=== PATIENT | female | born 1950 | race Caucasian/White ===

== ENCOUNTER → 2017-01-05 | Outpatient (CLI) | payer OTHER ==
[~2017-01-05] MED LIST: DOCU1CAP60 PO; LSN/20125 PO; MULT-506 PO; RANI75TA7 PO; URSO300C4 PO
== END | disposition home or self-care (01) ==
LOC: C.RDSM 14:05
PROVIDERS: ATTEND Physical Medicine & Rehabilitation Sports Medicine
DX: M16.0 Bilateral primary osteoarthritis of hip (principal); Z96.643 Presence of artificial hip joint, bilateral

== ENCOUNTER → 2018-01-04 | Outpatient (CLI) | payer OTHER | END | disposition home or self-care (01) | LOC: C.RDSM 13:30 | PROVIDERS: ATTEND Physical Medicine & Rehabilitation Sports Medicine | DX: M16.0 Bilateral primary osteoarthritis of hip (principal); Z96.643 Presence of artificial hip joint, bilateral ==

== ENCOUNTER → 2018-07-02 | Outpatient (CLI) | payer OTHER ==
[~2018-07-02] MED LIST changes: +LISI20TA8 PO; -LSN/20125 PO
--- NOTE | 2018-07-02 09:00 | DIAGNOSTIC IMAGING REPORT ---
L KNEE 4 OR MORE CLINICAL HISTORY: LEFT KNEE PAIN COMPARISON: None. DISCUSSION: Moderate degenerative change all major joint compartments. This includes a patellofemoral joint. No significant joint effusion. No acute bony abnormality. There is no evidence for soft tissue swelling. IMPRESSION: Moderate degenerative change all major joint compartments. No acute process. The above report was generated using voice recognition software. It may contain grammatical, syntax or spelling errors. Electronically signed by: Christopher Montana M.D. 07/02/2018 8:59 AM Dictated Date/Time: 07/02/2018 8:58 AM
== END | disposition home or self-care (01) ==
LOC: C.RDSM 09:56
PROVIDERS: ATTEND Physician Assistant
DX: M25.562 Pain in left knee (principal)

== ENCOUNTER 2021-06-22 20:05 | Observation (INO) ==
--- NOTE | 2021-06-22 20:31 | Emergency Department Note ---
History of Present Illness General Chief complaint: Syncope Stated complaint: SYNCOPE Time Seen by Provider: 06/22/21 20:17 Source: patient and family History of Present Illness Provider complaint: Near syncope Onset (ago): hour(s) less than 1 Location: head Pain Consistency: + now resolved Quality: + other ([place] clammy and as if she may pass out) Relieved By: + rest Associated symptoms: + chest pain and + nausea/vomiting (Nausea no vomiting); no cough, no fever/chills, no headaches, no shortness of breath or no syncope This is a 70-year-old female presents with a near syncopal episode with chest discomfort. The patient states that she had dinner and went to the bathroom to have a bowel movement. She was straining somewhat to have the bowel movement and then she suddenly became very clammy and weak. She had her daughter help to lay her on the ground. She noticed that her apple watch showed a heart rate of 50 at the time. She also developed some chest pressure in the middle of her chest without shortness of breath. She stated that lasted about a minute and felt better after she took her bra off. She had a little bit of nausea but no vomiting. She denies any recent illness, fever, cough or cold symptoms, palpitations, abdominal pain, diarrhea, black or bloody stools or urinary symptoms. She denies any leg swelling or pain. She has been vaccinated for COVID-19. Home Medications Medication Instructions Recorded Confirmed Type azelastine 137 mcg (0.1 %) nasal 1 spray INTRANASAL BID PRN 06/22/21 06/22/21 History spray aerosol cholecalciferol (vitamin D3) 10 10 mcg PO BID 06/22/21 06/22/21 History mcg (400 unit) tablet (Vitamin D3) etodolac 400 mg tablet 400 mg PO BID PRN 06/22/21 06/22/21 History lisinopril 20 2 tab PO DAILY 06/22/21 06/22/21 History mg-hydrochlorothiazide 12.5 mg tablet metoprolol succinate 25 mg 25 mg PO QPM 06/22/21 06/22/21 History tablet,extended release 24 hr omeprazole 20 mg capsule,delayed 20 mg PO DAILY 06/22/21 06/22/21 History release ursodiol 300 mg capsule 300 mg PO ACHS 06/22/21 06/22/21 History Allergies Allergy/AdvReac Type Severity Reaction Status Date / Time Bactrim Allergy Unknown aching Verified 01/05/14 05:41 joints sulfamethoxazole [Bactrim] Allergy Unknown aching Verified 06/22/21 22:43 joints trimethoprim [Bactrim] Allergy Unknown aching Verified 06/22/21 22:43 joints Past Med/Surg History Medical History Osteoarthritis (01/05/14) Social History Smoking Status: Never smoker Feels Safe at Home: Yes Review of Systems See HPI for pertinent positives & negatives. and A total of 10 systems reviewed and were otherwise negative Physical Exam Vital Signs Vital Signs - 24 hr 06/22/21 20:16 06/22/21 21:16 06/22/21 21:37 Pulse Rate - Lying 80 Pulse Rate - Sitting 90 Pulse Rate - Standing 96 H Pulse Rate 78 79 Pulse Rate [Radial] Pulse Rhythm Regular Respiratory Rate 16 16 Respiratory Depth Blood Pressure - Lying 144/62 H Blood Pressure - Sitting 162/72 H Blood Pressure- Standing 164/74 H Blood Pressure 154/57 H Blood Pressure [Left Arm] Blood Pressure Mean 89 Blood Pressure Mean [Left Arm] Pulse Oximetry 98 96 Oxygen Delivery Method Room Air Room Air Sepsis Recent Fever Within 48 Hours No Sepsis New/Unexplained Change in Mental Status No Sepsis Action Taken by Nursing No Action Required 06/22/21 21:39 Pulse Rate - Lying Pulse Rate - Sitting Pulse Rate - Standing Pulse Rate Pulse Rate [Radial] 86 Pulse Rhythm Respiratory Rate 16 Respiratory Depth Normal Blood Pressure - Lying Blood Pressure - Sitting Blood Pressure- Standing Blood Pressure Blood Pressure [Left Arm] 164/74 H Blood Pressure Mean Blood Pressure Mean [Left Arm] 104 Pulse Oximetry 96 Oxygen Delivery Method Sepsis Recent Fever Within 48 Hours Sepsis New/Unexplained Change in Mental Status Sepsis Action Taken by Nursing Constitutional: Vital signs reviewed. Eyes: Pupils are equal round reactive to light. Conjunctiva are noninjected. ENT: Pharynx is clear without erythema or exudate. Mucous membranes are moist. Neck supple without meningeal signs. Respiratory: Clear to auscultation bilaterally. Breath sounds are equal bilaterally. Cardiovascular: Regular rate and rhythm. No rubs or gallops. GI: Soft, nondistended and nontender. Bowel sounds are present. Musculoskeletal: No peripheral edema. No lower extremity tenderness. Integumentary: No cyanosis. or jaundice. Neurological: The patient is awake and alert. No focal deficits. Psychiatric: Normal affect. Not anxious appearing. Course Administered Medications Magnesium Sulfate/Dextrose (Magnesium Sulfate / D5w) 1 gm in 100 mls @ 100 mls/hr IV Q1H SHEILA Stop: 06/22/21 23:47 Last Admin: 06/22/21 21:58 Dose: 100 mls/hr Documented by: [id number] Discontinued Medications Potassium Chloride (K Sergei / Wtr) 10 meq in 100 mls @ 100 mls/hr IV ONE ONE Stop: 06/22/21 22:47 Last Admin: 06/22/21 21:58 Dose: 100 mls/hr Documented by: [id number] Potassium Chloride (Potassium Chloride 10 Meq Tabcr) 20 meq PO NOW STA Stop: 06/22/21 21:49 Last Admin: 06/22/21 21:58 Dose: 20 meq Documented by: [id number] Medical Decision Making Differential Diagnosis Vagal reaction, dysrhythmia, heart block, unstable angina, metabolic derangement Medical Records I did perform a limited focused review of portions of the patient's old chart on the electronic medical record. The patient has had no recent pertinent visits to this hospital. Home Medications Current Medication List: was personally reviewed by me Laboratory Data Attestation: I reviewed the patient's lab results. Result diagrams: 06/22/21 20:35 06/22/21 20:35 Lab Results 06/22/21 06/22/21 06/22/21 Range/Units 20:35 20:35 20:41 WBC 9.23 (4.8-10.8) K/uL RBC 4.46 (4.2-5.4) M/uL Hgb 13.6 (12.0-16.0) g/dL Hct 38.5 (37-47) % MCV 86.3 (80-100) fL MCH 30.5 (25-34) pg MCHC 35.3 (32-36) g/dL RDW Std Deviation 42.7 (36.4-46.3) fL RDW Coeff of Hussein 13.3 (11.5-14.5) % Plt Count 285 (130-400) K/uL MPV 9.4 (7.4-10.4) fL Immature Gran % (Auto) 0.3 % Neut % (Auto) 76.7 % Lymph % (Auto) 10.7 % [place] % (Auto) 9.4 % Eos % (Auto) 2.7 % Baso % (Auto) 0.2 % Neut # (Auto) 7.07 H (1.4-6.5) K/uL Lymph # (Auto) 0.99 L (1.2-3.4) K/uL [place] # (Auto) 0.87 H (0.11-0.59) K/uL Eos # (Auto) 0.25 (0-0.5) K/uL Baso # (Auto) 0.02 (0-0.2) K/uL Immature Gran # (Auto) 0.03 H (0.00-0.02) K/uL Sodium 128 L (136-145) mmol/L Potassium 3.2 L (3.5-5.1) mmol/L Chloride 93 L (98-107) mmol/L Carbon Dioxide 27 (21-32) mmol/L Anion Gap 7.0 (3-11) BUN 31 H (7-18) mg/dl Creatinine 1.17 (0.6-1.2) mg/dl Est Cr Clr Drug Dosing 53.2 ml/min Est GFR ( Amer) 55.1 ml/min Est GFR (Non-Af Amer) 47.5 ml/min BUN/Creatinine Ratio 26.2 H (10-20) Glucose 157 H (70-99) mg/dl Calcium 8.9 (8.5-10.1) mg/dl Phosphorus 2.9 (2.5-4.9) mg/dl Magnesium 1.2 L (1.8-2.4) mg/dl Total Bilirubin 0.4 (0.2-1) mg/dl AST 22 (15-37) U/L ALT 22 (12-78) U/L Alkaline Phosphatase 89 (45-117) U/L Troponin I < 0.015 (0-0.045) ng/ml Total Protein 7.1 (6.4-8.2) gm/dl Albumin 3.3 L (3.4-5.0) gm/dl Globulin 3.8 (2.5-4.0) gm/dl Albumin/Globulin Ratio 0.9 (0.9-2) COVID-19 Eval Order Covid19 at [facility] SARS-CoV-2 (PCR) (Negative) 06/22/21 Range/Units 20:41 WBC (4.8-10.8) K/uL RBC (4.2-5.4) M/uL Hgb (12.0-16.0) g/dL Hct (37-47) % MCV (80-100) fL MCH (25-34) pg MCHC (32-36) g/dL RDW Std Deviation (36.4-46.3) fL RDW Coeff of Hussein (11.5-14.5) % Plt Count (130-400) K/uL MPV (7.4-10.4) fL Immature Gran % (Auto) % Neut % (Auto) % Lymph % (Auto) % [place] % (Auto) % Eos % (Auto) % Baso % (Auto) % Neut # (Auto) (1.4-6.5) K/uL Lymph # (Auto) (1.2-3.4) K/uL [place] # (Auto) (0.11-0.59) K/uL Eos # (Auto) (0-0.5) K/uL Baso # (Auto) (0-0.2) K/uL Immature Gran # (Auto) (0.00-0.02) K/uL Sodium (136-145) mmol/L Potassium (3.5-5.1) mmol/L Chloride (98-107) mmol/L Carbon Dioxide (21-32) mmol/L Anion Gap (3-11) BUN (7-18) mg/dl Creatinine (0.6-1.2) mg/dl Est Cr Clr Drug Dosing ml/min Est GFR ( Amer) ml/min Est GFR (Non-Af Amer) ml/min BUN/Creatinine Ratio (10-20) Glucose (70-99) mg/dl Calcium (8.5-10.1) mg/dl Phosphorus (2.5-4.9) mg/dl Magnesium (1.8-2.4) mg/dl Total Bilirubin (0.2-1) mg/dl AST (15-37) U/L ALT (12-78) U/L Alkaline Phosphatase (45-117) U/L Troponin I (0-0.045) ng/ml Total Protein (6.4-8.2) gm/dl Albumin (3.4-5.0) gm/dl Globulin (2.5-4.0) gm/dl Albumin/Globulin Ratio (0.9-2) COVID-19 Eval Order SARS-CoV-2 (PCR) NEGATIVE (Negative) Imaging Data Attestation: I personally reviewed and interpreted this imaging study as follows: My Impression: Chest x-ray per my interpretation shows no acute cardiopulmonary process. ECG Data Attestation: I personally reviewed and interpreted this ECG as follows: Indication: + chest pain and + weakness Rate (beats per minute): 75 Rhythm: + normal sinus ECG [place]: + Normal ECG ST segments: + Nonspecific ST abnormalities ECG Findings: no PVCs Comparison ECG Date: no prior available MDM Narrative I did evaluate the patient as noted above. She is presenting with a near syncopal episode while trying to defecate. Her daughter states that her heart r ate on the patient's apple watch was 50. She also had some chest pressure which went away after she took her bra off. IV access was established. I did place an order for continuous cardiac monitoring. The monitor showed normal sinus rhythm at a rate of 76 bpm. I did order and personally review the patient's 12- lead EKG as described above. She has some nonspecific ST changes. There is no ST elevation. There is no old EKG to compare this with. I did order and personally reviewed the images of the patient's chest x-ray as described above. There is no evidence of acute abnormality on chest x-ray. I did order a urine analysis. I did order and review the patient's blood work as noted in the electronic medical record. Electrolytes demonstrate a sodium of 128, potassium of 3.2, chloride of 93 and magnesium of 1.2. I did treat the patient with IV KCl as well as magnesium. She was also given oral potassium. She does state that she has had low sodium in the past. She also states that she has been dieting since March and has lost 15 pounds. I did order a phosphorus as well which is pending. CBC does not demonstrate leukocytosis or anemia. Troponin is negative. LFTs are unremarkable. I did discuss the test results with the patient. I did recommend hospitalization for continued cardiac monitoring as well as repletion of her electrolytes, repeat cardiac biomarkers and further evaluation. I did discuss the case with the hospitalist and medical case manager. Covid screening test is negative. Impression & Plan Bradycardia, Near syncope, Hyponatremia, Acute hypokalemia, Hypomagnesemia, Chest pain Discharge Plan Visit Data Chief Complaint: Syncope Stated Complaint: SYNCOPE ED Provider: Santos Sánchez Discharge Problem: Bradycardia, Near syncope, Hyponatremia, Acute hypokalemia, Hypomagnesemia, Chest pain Patient Disposition: Being Evaluated by Hospitalist Forms Stand Alone Forms: My [facility] Prescriptions Prescriptions: No Action lisinopril-hydrochlorothiazide 20-12.5 mg tablet 2 tab PO DAILY RF: 0 ursodiol 300 mg capsule 300 mg PO ACHS RF: 0 omeprazole 20 mg capsule,delayed release(DR/EC) 20 mg PO DAILY RF: 0 etodolac 400 mg tablet 400 mg PO BID PRN (Reason: Pain) RF: 0 metoprolol succinate 25 mg tablet extended release 24 hr 25 mg PO QPM RF: 0 azelastine 137 mcg (0.1 %) aerosol,spray 1 spray INTRANASAL BID PRN (Reason: allergies) RF: 0 cholecalciferol (vitamin D3) [Vitamin D3] 10 mcg (400 unit) Tablet 10 mcg PO BID RF: 0 Referrals Referrals: PCP,NO [Physician] -
[2021-06-22 20:49] LABS: Basophils # (auto) 0.02 K/uL (0-0.2); Basophils % (auto) 0.2 %; Eosinophils # (auto) 0.25 K/uL (0-0.5); Eosinophils % (auto) 2.7 %; Hematocrit (blood only) 38.5 % (37-47); Hemoglobin 13.6 g/dL (12.0-16.0); Immature Granulocytes # (auto) 0.03 K/uL (0.00-0.02); Immature Granulocytes % (auto) 0.3 %; Lymphocytes # (auto) 0.99 K/uL (1.2-3.4); Lymphocytes % (auto) 10.7 %; Mean Corpuscular Hemoglobin 30.5 pg (25-34); Mean Corpuscular Hgb Conc 35.3 g/dL (32-36); Mean Corpuscular Volume 86.3 fL (80-100); Mean Platelet Volume 9.4 fL (7.4-10.4); Monocytes # (auto) 0.87 K/uL (0.11-0.59); Monocytes % (auto) 9.4 %; Neutrophils # (auto) 7.07 K/uL (1.4-6.5); Neutrophils % (auto) 76.7 %; Platelet Count 285 K/uL (130-400); RDW Coefficient of Variation 13.3 % (11.5-14.5); RDW Standard Deviation 42.7 fL (36.4-46.3); Red Blood Count 4.46 M/uL (4.2-5.4); White Blood Count 9.23 K/uL (4.8-10.8)
[2021-06-22 21:08] LABS: Alanine Aminotransferase 22 U/L (12-78); Albumin Level 3.3 gm/dl (3.4-5.0); Aspartate Aminotransferase 22 U/L (15-37); BUN Creatinine Ratio 26.2 (10-20); Blood Urea Nitrogen 31 mg/dl (7-18); Calcium 8.9 mg/dl (8.5-10.1); Carbon Dioxide 27 mmol/L (21-32); Chloride 93 mmol/L (98-107); Creatinine Clr Calc Pharmacy 53.2 ml/min; Est GFR (African American) 55.1 ml/min; Est GFR (Non-African American) 47.5 ml/min; Glucose 157 mg/dl (70-99); Magnesium 1.2 mg/dl (1.8-2.4); Potassium 3.2 mmol/L (3.5-5.1); Sodium 128 mmol/L (136-145)
[2021-06-22 21:13] LABS: Albumin Globulin Ratio 0.9 (0.9-2); Alkaline Phosphatase 89 U/L (45-117); Bilirubin,Total 0.4 mg/dl (0.2-1); Globulin 3.8 gm/dl (2.5-4.0); Total Protein 7.1 gm/dl (6.4-8.2); Troponin I < 0.015 ng/ml (0-0.045)
[2021-06-22] MEDS ORDERED: POTASSIUM CHLORIDE / WTR 10 MEQ/100 ML PLCT IV ONE (21:48)
[2021-06-22] MEDS ORDERED: POTASSIUM CHLORIDE 10 MEQ TABCR PO STA (21:48)
[2021-06-22] MEDS: MAGNESIUM SULFATE / D5W 1 GM/100 ML BAG IV SCH ×2 (21:58→23:17)
[2021-06-22 22:02] LABS: Phosphorus 2.9 mg/dl (2.5-4.9)
[2021-06-22] MEDS ORDERED: POTASSIUM CHLORIDE CRTAB 20 MEQ TABCR PO STA (22:39)
--- NOTE | 2021-06-22 23:37 | History and Physical Report ---
DATE OF ADMISSION: 06/22/2021. CHIEF COMPLAINT: Presyncope. HISTORY OF PRESENT ILLNESS: A 70-year-old female with past medical history significant for prediabetes, Raynaud's syndrome, hypertension, GERD, obesity, presents with presyncope. The patient says she had a big dinner today, after that she felt like going to bathroom. She sat on the commode and moved her bowels , and she felt like she had to go more, but it was not coming, then she felt clammy and did not feel good, and she laid on the ground and called her daughter and the EMS was called. When the EMS came, they made her walk and she was feeling fine, but she was brought in here because of the presyncope symptoms. In the ER, she was found to have hyponatremia, hypokalemia and hypomagnesemia, and we were called for admission. She is resting comfortably currently and she had again a loose bowel movement to the ER. [place] dizzy before, but the dizziness is improved. No headache, no blurred visions, no earache. She has had runny nose from her allergies. No sore throat, no cough, no fevers, no chest pain currently, no shortness of breath, currently no nausea, no abdominal pain. Normal bladder movements, no blood in stools or black stools. No hematuria, no swelling in the legs, no rash. Otherwise, she ambulates okay. ALLERGIES: BACTRIM. PAST MEDICAL HISTORY: As mentioned above. PAST SURGICAL HISTORY: Cholecystectomy, tonsillectomy, adenoidectomy, total hip replacement. MEDICATIONS: The patient is on azelastine spray b.i.d. p.r.n., vitamin D 10 mcg p.o. b.i.d., etodolac 400 mg p.o. b.i.d. p.r.n., lisinopril/hydrochlorothiazide 20/12.5 mg 2 tablets daily, metoprolol succinate 25 mg p.o. daily, omeprazole 20 mg p.o. daily, ursodiol 300 mg p.o. a.c. at bedtime. FAMILY HISTORY: Significant for father has alcoholism, pancreatic cancer; mother has diabetes, alcoholism. Maternal grandfather has diabetes, paternal grandfather has diabetes, maternal grandmother has stroke. SOCIAL HISTORY: . Former smoker, quit in 1973. Smoked half pack a day for 2 years. Alcohol, 1 drink per week. No drug use. REVIEW OF SYSTEMS: As per HPI. Rest of her review of systems is negative. PHYSICAL EXAMINATION: GENERAL: The patient is obese, not in acute distress. VITAL SIGNS: Afebrile, pulse 86, respiratory rate 16, blood pressure 164/74, oxygen 96% on room air. HEENT: Pupils equal, round and reactive to light. Oral mucosa moist. NECK: No JVD, no neck masses. CARDIOVASCULAR: S1 and S2 heard. Regular rate and rhythm. No murmur, no gallop. RESPIRATORY SYSTEM: Normal AP diameter. No accessory muscle use. No wheezing, no crackles. ABDOMEN: Soft, bowel sounds present, nontender, no distention. CENTRAL NERVOUS SYSTEM: Cranial nerves II-XII grossly intact, nonfocal. EXTREMITIES: No edema, no erythema. LABORATORY DATA: WBC 9.2, hemoglobin 13.6, hematocrit 38.5, platelets 285. Sodium 128, potassium 3.2, chloride 93, bicarbonate 27, BUN 31, creatinine 1.1, serum glucose 157, calcium 8.9, phosphorus 2.9, magnesium 1.2, total bilirubin 0.4, AST 22, ALT 22, alkaline phosphatase 89. Troponin I less than 0.015. SARS-CoV-2 PCR negative. IMAGING: Chest x-ray: No acute findings. EKG: Normal sinus rhythm, rate of 75, no significant change was found. ASSESSMENT AND PLAN: This is a 70-year-old female who presents with presyncope. 1. Presyncope: Could be mostly vasovagal as the patient was straining to move her bowels. Also electrolyte abnormalities, which we will replace. We will place her on gentle fluids. Orthostatics. Monitor in the telemetry and echocardiogram and follow repeat laboratories in the a.m. Physical therapy and occupational therapy prior to discharge. If any concern, we will consult cardiology. 2. Electrolyte abnormalities: Potassium 3.2, magnesium of 1.2; we will replace. Follow the repeat laboratories. The patient has hyponatremia, sodium of 128. We will follow the urine osmolality, serum osmolality and urine sodium. Getting gentle fluids. We will monitor the repeat laboratories. The patient is on hydrochlorothiazide,may need to change to a different blood pressure medication. 3. 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 We will check vitamin B12 in morning laboratories. 4. Hypertension: Continue Toprol-XL and lisinopril. We will hold hydrochlorothiazide for now.Followup with PCP. 5. Deep venous thrombosis prophylaxis: Sequential compression devices. DISPOSITION: Monitor in the med-tele. PT/OT prior to discharge. Social service to help with discharge planning. Job ID: [id number] [facility]ash
[2021-06-23] MEDS ORDERED: ACETAMINOPHEN 325 MG TAB PO PRN (00:27)
[2021-06-23] MEDS ORDERED: NITROGLYCERIN SL 0.4 MG/TAB TAB SL PRN (00:27)
[2021-06-23] MEDS ORDERED: SODIUM CHLORIDE 0.9% 1000ML 1,000 ML IV SCH (00:27)
[2021-06-23 05:27] LABS: Basophils # (auto) 0.01 K/uL (0-0.2); Basophils % (auto) 0.1 %; Eosinophils # (auto) 0.13 K/uL (0-0.5); Eosinophils % (auto) 1.4 %; Hematocrit (blood only) 38.3 % (37-47); Hemoglobin 13.7 g/dL (12.0-16.0); Immature Granulocytes # (auto) 0.03 K/uL (0.00-0.02); Immature Granulocytes % (auto) 0.3 %; Lymphocytes # (auto) 1.06 K/uL (1.2-3.4); Lymphocytes % (auto) 11.7 %; Mean Corpuscular Hemoglobin 30.5 pg (25-34); Mean Corpuscular Hgb Conc 35.8 g/dL (32-36); Mean Corpuscular Volume 85.3 fL (80-100); Mean Platelet Volume 9.3 fL (7.4-10.4); Neutrophils # (auto) 6.85 K/uL (1.4-6.5); Neutrophils % (auto) 75.5 %; Platelet Count 292 K/uL (130-400); RDW Coefficient of Variation 13.3 % (11.5-14.5); RDW Standard Deviation 41.6 fL (36.4-46.3); Red Blood Count 4.49 M/uL (4.2-5.4); White Blood Count 9.08 K/uL (4.8-10.8)
[2021-06-23 06:02] LABS: BUN Creatinine Ratio 29.1 (10-20); Blood Urea Nitrogen 25 mg/dl (7-18); Calcium 8.8 mg/dl (8.5-10.1); Carbon Dioxide 26 mmol/L (21-32); Chloride 94 mmol/L (98-107); Creatinine Clr Calc Pharmacy 71.5 ml/min; Est GFR (African American) 78.8 ml/min; Glucose 120 mg/dl (70-99); Magnesium 2.3 mg/dl (1.8-2.4); Potassium 3.8 mmol/L (3.5-5.1); Sodium 129 mmol/L (136-145)
[2021-06-23 06:04] LABS: Phosphorus 3.4 mg/dl (2.5-4.9); Troponin I < 0.015 ng/ml (0-0.045)
--- NOTE | 2021-06-23 06:40 | Hospitalist Progress Note ---
Date of Service June 23, 2021 Assessment & Plan Admission and Anticipated Discharge Date Admission Date: June 22, 2021 Subjective Small pink area on her bed pad as per nursing staff. Seems patient feels she mi ght have irritation from diarrhea. Will follow hemeoccult stool test. Results & Data Results & Data ([facility]) Vital Signs (Past 12 Hours) Vital Signs Temp Pulse Pulse Resp BP BP Pulse Ox 06/23/21 04:44 37.0 C 82 16 163/64 H 98 06/23/21 04:31 87 06/23/21 03:00 36.6 C 77 18 137/74 94 06/22/21 23:06 83 164/82 H 06/22/21 21:39 86 16 164/74 H 96 06/22/21 21:16 79 16 96 06/22/21 20:16 78 16 154/57 H 98
--- NOTE | 2021-06-23 07:31 | Electrocardiogram Report ---
Test Reason : Blood Pressure : / mmHG Vent. Rate : 075 BPM Atrial Rate : 075 BPM P-R Int : 150 ms QRS Dur : 076 ms QT Int : 376 ms P-R-T Axes : 049 041 045 degrees QTc Int : 419 ms Normal sinus rhythm Possible Left atrial enlargement Abnormal ECG When compared with ECG of 26-DEC-2013 12:34, No significant change was found Confirmed by Jarek Hernandez ([id number]) on 06/23/2021 7:31:18 AM Referred By: REFERRED SELF Confirmed By:Tono Hernandez
--- NOTE | 2021-06-23 07:35 | Electrocardiogram Report ---
Test Reason : Blood Pressure : / mmHG Vent. Rate : 091 BPM Atrial Rate : 091 BPM P-R Int : 144 ms QRS Dur : 076 ms QT Int : 358 ms P-R-T Axes : 051 034 046 degrees QTc Int : 440 ms Normal sinus rhythm Normal ECG When compared with ECG of 22-JUN-2021 20:17, (unconfirmed) No significant change was found Confirmed by Jarek Hernandez ([id number]) on 06/23/2021 7:34:36 AM Referred By: REFERRED SELF Confirmed By:Tono Hernandez
--- NOTE | 2021-06-23 07:48 | XRay Report ---
XR chest 1V portable CLINICAL HISTORY: Chest Pain COMPARISON STUDY: December 26, 2013 FINDINGS: No pneumothorax. No pleural effusion. Small atelectasis or infiltrate is seen at the left base. Cardiomediastinal silhouette is within normal limits in size. No significant pulmonary vascular congestion.. Aorta is tortuous. Osseous structures: Osteopenia. Possible degenerative changes of the spine however vertebral bodies are not well seen. IMPRESSION: 1. Small atelectasis or infiltrate at the left base. ACT 112: Negative or not required by law. The above report was generated using voice recognition software. It may contain grammatical, syntax o r spelling errors. Electronically signed by: Debi Fisher DO 06/23/2021 7:46 AM
[2021-06-23] MEDS: PANTOprazole 40 MG TAB PO SCH (09:07)
[2021-06-23] MEDS: CHOLECALCIFEROL 400 UNITS 10 MCG TAB PO SCH ×2 (09:07→21:45)
[2021-06-23] MEDS: AZELASTINE: ORDER AWAITING ACTION SCH ×2 (09:08→13:22)
[2021-06-23] MEDS: lisinopril 20 MG TAB PO SCH (09:08)
[2021-06-23] MEDS: ursodioL 300 MG CAP PO SCH ×4 (09:08→21:45)
[2021-06-23 13:22] LABS: Appearance Urine Clear (Clear); Bacteria Urine Automated Negative (Negative); Bilirubin Urine Negative (Negative); Blood Urine Trace (Negative); Cast Urine Automated 0 /lpf (0-5); Color Urine Yellow; Glucose Urine UA Negative (Negative); Ketones Urine Negative (Negative); Leukocyte Esterase Urine Negative (Negative); Nitrite Urine Negative (Negative); Protein Urine Negative (Negative); RBC Urine Automated 0-4 /hpf (0-4); Specific Gravity Urine 1.006 (1.000-1.030); Urobilinogen Urine Negative (Negative); pH Urine 5.5 (4.5-7.5)
[2021-06-23] MEDS ORDERED: amLODIPine BESYLATE 5 MG TAB PO ONE (15:26)
[2021-06-23] MEDS ORDERED: METOPROLOL SUCC 25MG EXT REL TAB PO SCH (21:00)
[2021-06-24] MEDS: AZELASTINE: ORDER AWAITING ACTION SCH ×3 (02:32→16:25)
[2021-06-24 08:30] LABS: Hematocrit (blood only) 37.6 % (37-47); Mean Corpuscular Hemoglobin 29.7 pg (25-34); Mean Corpuscular Hgb Conc 34.6 g/dL (32-36); Mean Platelet Volume 9.1 fL (7.4-10.4); Platelet Count 265 K/uL (130-400); RDW Coefficient of Variation 13.4 % (11.5-14.5); RDW Standard Deviation 42.2 fL (36.4-46.3); Red Blood Count 4.37 M/uL (4.2-5.4)
[2021-06-24] MEDS ORDERED: amLODIPine BESYLATE 5 MG TAB PO SCH (09:00)
[2021-06-24 09:10] LABS: BUN Creatinine Ratio 22.5 (10-20); Calcium 8.7 mg/dl (8.5-10.1); Creatinine Clr Calc Pharmacy 98.7 ml/min; Est GFR (African American) 106.1 ml/min; Est GFR (Non-African American) 91.5 ml/min; Magnesium 1.5 mg/dl (1.8-2.4); Phosphorus 2.3 mg/dl (2.5-4.9); Potassium 3.8 mmol/L (3.5-5.1)
[2021-06-24] MEDS: PANTOprazole 40 MG TAB PO SCH (09:48)
[2021-06-24] MEDS: ursodioL 300 MG CAP PO SCH ×3 (09:48→16:24)
[2021-06-24] MEDS: CHOLECALCIFEROL 400 UNITS 10 MCG TAB PO SCH (09:48)
[2021-06-24] MEDS: lisinopril 20 MG TAB PO SCH (09:51)
[2021-06-24] MEDS ORDERED: CYANOCOBALAMIN 500 MCG TABLET (VITAMIN B-12) PO SCH (10:00)
[2021-06-24] MEDS: MAGNESIUM SULFATE / D5W 1 GM/100 ML BAG IV SCH ×2 (10:57→12:43)
[2021-06-24] MEDS: POT PHOSPHATE MONOBASIC W/ SOD TAB PO SCH ×2 (11:56→16:24)
--- NOTE | 2021-06-24 13:57 | Hospitalist Progress Note ---
Date of Service June 23, 2021 Assessment & Plan (1) Near syncope: (2) Acute hypokalemia: (3) Hypomagnesemia: Plan: This is a 70-year-old female who presents with presyncope. 1. Presyncope: Could be mostly vasovagal as the patient was straining to move her bowels. Also electrolyte abnormalities, which we will replace. We will place her on gentle fluids. Orthostatics checked - normal. Patient reports several loose stools since large dinner, still continues to have loose stools about every 2 hrs, says it slowed down. No one else in the family had loose stools after dinner. Patient reports that sometimes she gets loose stools also from being nervous, says she was very excited about the dinner because she did not see her family in a long time due to Covid No abdominal pain, no nausea or vomiting Telemetry reviewed, normal sinus rhythm Echocardiogram -LV normal in size. Mild concentric LVH. EF 65%. LV wall motion is normal. RV systolic function is normal. LA size is normal. RA size is normal. Mild aortic regurg. There is moderate tricuspid regurg. Grade 1 diastolic dysfunction. 2. Electrolyte abnormalities: Potassium 3.2, Magnesium of 1.2; we will replace. Follow the repeat laboratories. The patient has hyponatremia, sodium of 128. Na 129 this AM We will follow the urine osmolality, serum osmolality and urine sodium. Getting gentle fluids. We will monitor the repeat laboratories. The patient is on hydrochlorothiazide,may need to change to a different blood pressure medication. Will hold HCTZ, start on amlodipine 2.5 mg. 3. 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 We will check vitamin B12 in morning laboratories. 4. Hypertension: Continue Toprol-XL and lisinopril. We will hold hydrochlorothiazide for now. Followup with PCP. DVT prophylaxis: SCDs DISPOSITION: Plan discharge home when medically stable. Admission and Anticipated Discharge Date Admission Date: June 22, 2021 Subjective Patient seen in follow-up, of likely vasovagal episode, hypokalemia and hypomagnesemia She is now feeling well, in NAD Her is present at the bedside She says that she has been having some loose stools since large dinner she made for her family, however denies any abdominal pain nausea or vomiting No one else in the family had loose stools after dinner Patient says that sometimes she gets loose stools from also being nervous, and she was excited because family did not meet in a long time due to Covid Currently however denies any dizziness lightheadedness, chest pain shortness of breath, overall says that she feels well Review of Systems Review of Systems: All systems reviewed & are unremarkable except as noted in Subjective Physical Exam Physical Exam: GENERAL: obese, pleasant female, not in acute distress. HEENT: NC/AT, Pupils equal, round and reactive to light. Oral mucosa moist. NECK: No JVD, no neck masses. CARDIOVASCULAR: S1 and S2 heard. Regular rate and rhythm. No murmur, no gallop. RESPIRATORY: Normal AP diameter. No accessory muscle use. No wheezing, no crackles. ABDOMEN: Soft, bowel sounds present, nontender, no distention. NEURO: Alert and oriented x3, no facial asymmetry, speech fluent, moves extremities EXTREMITIES: No edema, no erythema. Results & Data Results & Data ([place]) Vital Signs (Past 12 Hours)
--- NOTE | 2021-06-24 14:06 | Hospitalist Progress Note ---
Date of Service June 24, 2021 Assessment & Plan (1) Near syncope: (2) Acute hypokalemia: (3) Hypomagnesemia: Plan: This is a 70-year-old female who presents with presyncope. 1. Presyncope: Could be mostly vasovagal as the patient was straining to move her bowels. Also electrolyte abnormalities, which we will replace. Received gentle IV fluids. Orthostatics checked - normal. Patient reports several loose stools prior to admission, now resolved. No abdominal pain, no nausea or vomiting Telemetry reviewed, normal sinus rhythm Echocardiogram -LV normal in size. Mild concentric LVH. EF 65%. LV wall motion is normal. RV systolic function is normal. LA size is normal. RA size is normal. Mild aortic regurg. There is moderate tricuspid regurg. Grade 1 diastolic dysfunction. 2. Electrolyte abnormalities: Hypokalemia, hyponatremia, hypomagnesemia - replete and monitor Potassium 3.2, Magnesium of 1.2; Sodium 128 on admission Na 130 this AM We will follow the urine osmolality, serum osmolality and urine sodium. Received gentle fluids. The patient is on hydrochlorothiazide,may need to change to a different blood pressure medication. Will hold HCTZ, start on amlodipine 2.5 mg. Continue lisinopril however at lower dose, 20 mg daily. Hypomagnesemia, Today magnesium 1.5 received IV mag We will discharge her on p.o. magnesium should follow-up with PCP for recheck blood work 3. 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 vitamin B12 level ~400 (normal) 4. Hypertension: Continue Toprol-XL and lisinopril. We will hold hydrochlorothiazide for now. Continue her lisinopril at lower dose 20 mg daily. Started amlodipine 2.5 mg daily. Recommend to check blood pressure at home and record these numbers, and followup with PCP. DVT prophylaxis: SCDs DISPOSITION: Plan to discharge home today. Admission and Anticipated Discharge Date Admission Date: June 22, 2021 Subjective Patient seen in follow-up, of likely vasovagal episode, hypokalemia and hypomagnesemia She is now feeling well, in NAD Had loose stools on admission, now resolved, last bowel movement yesterday. No abdominal pain, no nausea no vomiting Also denies any shortness of breath, chest pain, dizziness or lightheadedness She is feeling well, and inquiring by going home Review of Systems Review of Systems: All systems reviewed & are unremarkable except as noted in Subjective Physical Exam Physical Exam: GENERAL: obese, pleasant female, not in acute distress. HEENT: NC/AT, EOMI, Pupils equal, round and reactive to light. Oral mucosa moist. NECK: No JVD, no neck masses. CARDIOVASCULAR: S1 and S2 heard. Regular rate and rhythm. No murmur, no gallop. RESPIRATORY: Normal AP diameter. No accessory muscle use. No wheezing, no crackles. ABDOMEN: Soft, bowel sounds present, nontender, no distention. NEURO: Alert and oriented x3, no facial asymmetry, speech fluent, moves extremities EXTREMITIES: No edema, no erythema. Results & Data Results & Data ([facility]) Vital Signs (Past 12 Hours) Vital Signs Temp Pulse Pulse Resp BP Pulse Ox 06/24/21 11:10 36.6 C 73 18 118/71 97 06/24/21 08:00 63 06/24/21 07:49 36.8 C 68 18 126/74 97 06/24/21 03:00 36.9 C 68 20 105/63 95 Laboratory Results 06/24/21 06/24/21 Range/Units 08:15 08:15 WBC 6.90 (4.8-10.8) K/uL RBC 4.37 (4.2-5.4) M/uL Hgb 13.0 (12.0-16.0) g/dL Hct 37.6 (37-47) % MCV 86.0 (80-100) fL MCH 29.7 (25-34) pg MCHC 34.6 (32-36) g/dL RDW Std Deviation 42.2 (36.4-46.3) fL RDW Coeff of Hussein 13.4 (11.5-14.5) % Plt Count 265 (130-400) K/uL MPV 9.1 (7.4-10.4) fL Sodium 130 L (136-145) mmol/L Potassium 3.8 (3.5-5.1) mmol/L Chloride 99 (98-107) mmol/L Carbon Dioxide 25 (21-32) mmol/L Anion Gap 7.0 (3-11) BUN 14 (7-18) mg/dl Creatinine 0.63 (0.6-1.2) mg/dl Est Cr Clr Drug Dosing 98.7 ml/min Est GFR ( Amer) 106.1 ml/min Est GFR (Non-Af Amer) 91.5 ml/min BUN/Creatinine Ratio 22.5 H (10-20) Glucose 99 (70-99) mg/dl Calcium 8.7 (8.5-10.1) mg/dl Phosphorus 2.3 L D (2.5-4.9) mg/dl Magnesium 1.5 L (1.8-2.4) mg/dl Medications Administered Current Inpatient Medications Acetaminophen (Acetaminophen 325 Mg Tab) 650 mg PO Q4H PRN PRN Reason: Pain or Fever Stop: 07/23/21 00:26 Amlodipine Besylate (Amlodipine Besylate 5 Mg Tab) 2.5 mg PO [facility] Stop: 07/24/21 08:59 Last Admin: 06/24/21 11:55 Dose: 2.5 mg Documented by: Cyanocobalamin (Cyanocobalamin 500 Mcg Tablet (Vitamin B-12)) 500 mcg PO [facility] Stop: 07/24/21 09:59 Last Admin: 06/24/21 11:55 Dose: 500 mcg Documented by: Lisinopril (Lisinopril 20 Mg Tab) 20 mg PO QAM [facility] Stop: 07/23/21 08:59 Last Admin: 06/24/21 09:51 Dose: 20 mg Documented by: Metoprolol Succinate (Metoprolol Succ 25mg Ext Rel Tab) 25 mg PO QPM [facility] Stop: 07/23/21 20:59 Last Admin: 06/23/21 21:45 Dose: 25 mg Documented by: Miscellaneous (Azelastine: Order Awaiting Action) 1 ea N/A QS [facility] Stop: 07/23/21 07:59 Last Admin: 06/24/21 09:45 Dose: Not Given Documented by: Nitroglycerin (Nitroglycerin Sl 0.4 Mg/Tab Tab) 0.4 mg SL UD PRN PRN Reason: Chest Pain Stop: 07/23/21 00:26 Pantoprazole Sodium (Pantoprazole 40 Mg Tab) 40 mg PO DAILY [facility]; Protocol Stop: 07/23/21 08:59 Last Admin: 06/24/21 09:48 Dose: 40 mg Documented by: Potassium Phosphate (Pot Phosphate Monobasic W/ Sod Tab) 1 tab PO QID [facility] Stop: 07/24/21 12:59 Last Admin: 06/24/21 11:56 Dose: 1 tab Documented by: Ursodiol (Ursodiol 300 Mg Cap) 300 mg PO ACHS [facility] Stop: 07/23/21 07:29 Last Admin: 06/24/21 11:56 Dose: 300 mg Documented by: Vitamin D (Cholecalciferol 400 Units 10 Mcg Tab) 400 units PO BID [facility] Stop: 07/23/21 08:59 Last Admin: 06/24/21 09:48 Dose: 400 units Documented by:
--- NOTE | 2021-06-24 14:15 | Discharge Summary ---
Date of Service June 24, 2021 Admission HPI Per Admitting Provider A 70-year-old female with past medical history significant for prediabetes, Raynaud's syndrome, hypertension, GERD, obesity, presents with presyncope. The patient says she had a big dinner today, after that she felt like going to bathroom. She sat on the commode and moved her bowels , and she felt like she had to go more, but it was not coming, then she felt clammy and did not feel good, and she laid on the ground and called her daughter and the EMS was called. When the EMS came, they made her walk and she was feeling fine, but she was brought in here because of the presyncope symptoms. In the ER, she was found to have hyponatremia, hypokalemia and hypomagnesemia, and we were called for admission. She is resting comfortably currently and she had again a loose bowel movement to the ER. [place] dizzy before, but the dizziness is improved. No headache, no blurred visions, no earache. She has had runny nose from her allergies. No sore throat, no cough, no fevers, no chest pain currently, no shortness of breath, currently no nausea, no abdominal pain. Normal bladder movements, no blood in stools or black stools. No hematuria, no swelling in the legs, no rash. Otherwise, she ambulates okay. Admission Exam Per Admitting Provider GENERAL: The patient is obese, not in acute distress. VITAL SIGNS: Afebrile, pulse 86, respiratory rate 16, blood pressure 164/74, oxygen 96% on room air. HEENT: Pupils equal, round and reactive to light. Oral mucosa moist. NECK: No JVD, no neck masses. CARDIOVASCULAR: S1 and S2 heard. Regular rate and rhythm. No murmur, no gallop. RESPIRATORY SYSTEM: Normal AP diameter. No accessory muscle use. No wheezing, no crackles. ABDOMEN: Soft, bowel sounds present, nontender, no distention. CENTRAL NERVOUS SYSTEM: Cranial nerves II-XII grossly intact, nonfocal. EXTREMITIES: No edema, no erythema. Principal Diagnosis Presyncopal episode, likely vasovagal episode Electrolyte abnormalities Hyponatremia, hypomagnesemia, hypokalemia Hypertension Discharge Exam GENERAL: obese, pleasant female, not in acute distress. HEENT: NC/AT, EOMI, Pupils equal, round and reactive to light. Oral mucosa moist. NECK: No JVD, no neck masses. CARDIOVASCULAR: S1 and S2 heard. Regular rate and rhythm. No murmur, no gallop. RESPIRATORY: Normal AP diameter. No accessory muscle use. No wheezing, no crackles. ABDOMEN: Soft, bowel sounds present, nontender, no distention. NEURO: Alert and oriented x3, no facial asymmetry, speech fluent, moves extremities EXTREMITIES: No edema, no erythema. Discharge Data Allergies Allergy/AdvReac Type Severity Reaction Status Date / Time Bactrim Allergy Unknown aching Verified 01/05/14 05:41 joints sulfamethoxazole [Bactrim] Allergy Unknown aching Verified 06/22/21 22:43 joints trimethoprim [Bactrim] Allergy Unknown aching Verified 06/22/21 22:43 joints Consultations 06/22/21 21:47 ED Decision to Admit Stat Hospital Course (1) Near syncope: (2) Acute hypokalemia: (3) Hypomagnesemia: This is a 70-year-old female who presents with presyncope. 1. Presyncope: Could be mostly vasovagal as the patient was straining to move her bowels. Also electrolyte abnormalities, which we will replace. Received gentle IV fluids. Orthostatics checked - normal. Patient reports several loose stools prior to admission, now resolved. No abdominal pain, no nausea or vomiting Telemetry reviewed, normal sinus rhythm Echocardiogram -LV normal in size. Mild concentric LVH. EF 65%. LV wall motion is normal. RV systolic function is normal. LA size is normal. RA size is normal. Mild aortic regurg. There is moderate tricuspid regurg. Grade 1 diastolic dysfunction. 2. Electrolyte abnormalities: Hypokalemia, hyponatremia, hypomagnesemia - replete and monitor Potassium 3.2, Magnesium of 1.2; Sodium 128 on admission Na 130 this AM We will follow the urine osmolality, serum osmolality and urine sodium. Received gentle fluids. The patient is on hydrochlorothiazide,may need to change to a different blood pressure medication. Will hold HCTZ, start on amlodipine 2.5 mg. Continue lisinopril however at lower dose, 20 mg daily. Hypomagnesemia, Today magnesium 1.5 received IV mag We will discharge her on p.o. magnesium should follow-up with PCP for recheck blood work 3. 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 vitamin B12 level ~400 (normal) 4. Hypertension: Continue Toprol-XL and lisinopril. We will hold hydrochlorothiazide for now. Continue her lisinopril at lower dose 20 mg daily. Started amlodipine 2.5 mg daily. Recommend to check blood pressure at home and record these numbers, and followup with PCP. DVT prophylaxis: SCDs DISPOSITION: Plan to discharge home today. Total Time Total Time Spent Total Time Spent (In Minutes): 35 Discharge Plan Discharge Items Patient Disposition: Home - Self-Care Reason For Visit: NEAR SYNCOPE Discharge Diagnosis: Presyncopal episode, likely vasovagal episode Electrolyte abnormalities Hyponatremia, hypomagnesemia, hypokalemia Hypertension Activity: Per Instructions section Non-emergency contact: Primary Care Provider Call non-emergency contact if: you have any medication questions and your symptoms worsen Follow-up/Referrals: Clayton Tavarez DO [Primary Care Provider] - Diet: Regular Addtl Attending Provider Instructions: Follow-up with primary care doctor within 1 week. Start taking magnesium twice a day as prescribed. Do not take your blood pressure medication - HCTZ/lisinopril. Instead only take lisinopril 20 mg daily and Take amlodipine 2.5 mg daily. Recommend to check blood pressure at home and record these numbers. Discuss these numbers with your primary care physician so your blood pressure medications could be adjusted. You should also have your blood work checked, especially your sodium level and magnesium level. Pending Studies at Discharge: No Stand-Alone Forms: My [facility] [employer], Smoking Cessation Medications and DC Order Prescriptions: New amlodipine [Norvasc] 5 mg Tablet 2.5 mg PO QAM Qty: 20 RF: 0 lisinopril 20 mg Tablet 20 mg PO QAM Qty: 20 RF: 0 magnesium oxide 500 mg capsule 500 mg PO BID Qty: 30 RF: 0 Aspercreme (lidocaine HCl) 4 % liquid roll-on 1 ea topical BID PRN (Reason: pain) Qty: 73 RF: 0 Continued ursodiol 300 mg capsule 300 mg PO ACHS RF: 0 omeprazole 20 mg capsule,delayed release(DR/EC) 20 mg PO DAILY RF: 0 etodolac 400 mg tablet 400 mg PO BID PRN (Reason: Pain) RF: 0 metoprolol succinate 25 mg tablet extended release 24 hr 25 mg PO QPM RF: 0 azelastine 137 mcg (0.1 %) aerosol,spray 1 spray INTRANASAL BID PRN (Reason: allergies) RF: 0 cholecalciferol (vitamin D3) [Vitamin D3] 10 mcg (400 unit) Tablet 10 mcg PO BID RF: 0 Discontinued lisinopril-hydrochlorothiazide 20-12.5 mg tablet 2 tab PO DAILY RF: 0 Discharge Orders: Discharge Order (Routine); Ordered 06/24/21 Ordered By: Mamadou Panda Admission Data Admit Date/Time: 06/22/21 22:38 Attending Provider: Mamadou Panda Admit Provider: Naseem Mario Primary Care Provider: Clayton Tavarez Other Providers: Naseem Mario
--- NOTE | 2021-06-24 18:05 | Electrocardiogram Report ---
Test Reason : Blood Pressure : / mmHG Vent. Rate : 072 BPM Atrial Rate : 072 BPM P-R Int : 150 ms QRS Dur : 074 ms QT Int : 400 ms P-R-T Axes : 055 055 076 degrees QTc Int : 438 ms Normal sinus rhythm with sinus arrhythmia Possible Left atrial enlargement Borderline ECG When compared with ECG of 23-JUN-2021 06:15, No significant change was found Confirmed by Jarek Hernandez [id number] on 06/24/2021 6:05:10 PM Referred By: REFERRED SELF Confirmed By:Tono Hernandez
== END 2021-06-24 16:43 | disposition home or self-care (01) ==
LOC: ED 20:05 → 2N 20:05